=== PATIENT | female | born 1955 | race Caucasian/White ===

== ENCOUNTER 2016-11-22 07:40 | Inpatient (IN) | payer OTHER ==
[2016-11-22] VITALS (14 sets, daily range): BP systolic 81–166; BP diastolic 55–92
[~2016-11-22] VITALS: Ht 165.1 cm; Wt 57.0 kg
[~2016-11-22 07:40] MED LIST: LACTATED RINGERS 1,000 ML IV SCH; LIDOCAINE/EPINEPHRINE 1% 1:100,000 (XYLOCAINE) 30 ML VIAL INJ ONE; SODIUM CHLORIDE FLUSH 3 ML SYR IV PRN; ceFAZolin 2,000 MG in WATER (STERILE) FOR INJECTION 20 ML IV SCH
[2016-11-22] MEDS ORDERED: MIDAZOLAM 2 MG/2 ML (VERSED) VIAL ONE (08:53)
[2016-11-22] MEDS ORDERED: PROPOFOL 20 ML IV ONE (08:53)
[2016-11-22] MEDS ORDERED: ALFENTANIL 500 MCG/ML (ALFENTA) 5 ML AMP IV ONE (08:53)
[2016-11-22] MEDS ORDERED: METOCLOPRAMIDE 10 MG/2 ML (REGLAN) VIAL ONE (09:08)
[2016-11-22] MEDS ORDERED: LIDOCAINE 4% TOPICAL 4.5 ML SYR ONE (10:00)
[2016-11-22] MEDS ORDERED: SIMETHICONE 40 MG/0.6 ML (MYLICON DROPS) ORAL SYRINGE ONE (10:00)
[2016-11-22] MEDS ORDERED: ePHEDrine SULFATE 50 MG/ML 1 ML AMP ONE (10:18)
[2016-11-22] MEDS ORDERED: SUCCINYLCHOLINE 20 MG/ML 10 ML VIAL ONE (10:23)
[2016-11-22] MEDS ORDERED: ROCURONIUM 50 MG/5 ML (ZEMURON) VIAL IV ONE ×2 (10:23→13:28)
[2016-11-22 10:52] LABS: BILIRUBIN,URINE Negative (Negative); GLUCOSE, URINE (UA) Negative (Negative); LEUKOCYTE ESTERASE, URINE Negative (Negative); PH,URINE 5.5 (5.0 - 8.0); UROBILINOGEN,URINE 0.2 mg/dL (0.2-1.0)
[2016-11-22 10:55] LABS: CLARITY,URINE Slightly Cloudy; COLOR,URINE Dark Yellow
[2016-11-22 10:58] LABS: AMORPHOUS SEDIMENT,UR 1+ /HPF; URINE CENTRIFUGED VOLUME 12 mL
[2016-11-22] MEDS ORDERED: HYDROmorphone PCA 30 MG/30 ML (DILAUDID) VIAL IV PRN ×2 (13:35→15:55)
[2016-11-22] MEDS ORDERED: NALOXONE 0.4 MG/ML (NARCAN) 1 ML VIAL IV PRN (13:35)
[2016-11-22 14:29] LABS: ANION GAP 8.9 MEQ/L (3-15)
[2016-11-22] MEDS ORDERED: GLYCOPYRROLATE 0.2 MG/ML (ROBINUL) 1 ML VIAL ONE (14:43)
[2016-11-22] MEDS ORDERED: NEOSTIGMINE 1 MG/ML SYRINGE ONE (14:43)
[2016-11-22] MEDS ORDERED: HYDROmorphone 2 MG/ML (DILAUDID) 1 ML SYRINGE ONE (15:19)
[2016-11-22] MEDS ORDERED: METOCLOPRAMIDE 10 MG/2 ML (REGLAN) VIAL IV PRN (15:55)
--- NOTE | 2016-11-22 16:00 | NUR ---
61 yowf admitted from surgery per ICU bed. Pt is A & O. Has a REJ and RFA IV. ELECTRODE CLEANING MACHINE OPERATOR dilaudid attached to the RFA with LR running at a KVO. Oconnell catheter patent and draining gemma urine. Oconnell emptied, 240cc. Has NS infusing per gravity in REJ. Monitor applied showing SR. Pt has midline incision which has 4x4 and tegaderm over the top and misha, drg also to the L. Pt states she is having pain and reminded to use her ELECTRODE CLEANING MACHINE OPERATOR. Lung sounds clr, pulses palpable and strong.
--- NOTE | 2016-11-22 16:40 | NUR ---
IV fluids changed to D5 1/2 NS with 20 KCl per orders. infusing at 100cc/hr. ETO2 applied by RT. Pt is on RA sats in the 90's
[2016-11-22] MEDS: D5 1/2 NS W/KCL 20 MEQ/L 1,000 ML IV SCH (16:48)
[2016-11-22] MEDS ORDERED: NS FLUSH 10 ML PRN IV (16:50)
[2016-11-22] MEDS ORDERED: NS FLUSH 3 ML PRN IV (16:50)
[2016-11-22] MEDS: ONDANSETRON 4 MG (ZOFRAN) ORAL DISSOLVE TAB PO SCH ×2 (18:13→23:51)
--- NOTE | 2016-11-22 18:22 | NUR ---
Ice chips given to pt. Pt dozes off and on. Meds given at ordered. Will continue to monitor closely. Tele showing SR in the 80 to 90's. Oconnell catheter patent to DDD.
[2016-11-22] MEDS ORDERED: ACETAMINOPHEN 325 MG TAB (TYLENOL) PO PRN (19:30)
--- NOTE | 2016-11-22 20:30 | NUR ---
Assisted patient to right side, pillows for repositioning, RN INTERNAL MEDICINE utilized prior, does endorse discomfort to abdomen rates 5/10, c/o dry mouth, ice chips and mouth moisturizer, swabs available and offered to brush teeth, refuses at this time. Incisions with same amount of drainage, Oconnell to DD with pale yellow output, VS as charted, continue to monitor
--- NOTE | 2016-11-22 21:28 | NUR ---
Text out to per provider notification intervention for sbp less than 85 - BP 81/56 retaken 84/55 one hour later with rest 81/48. Continue to monitor
--- NOTE | 2016-11-22 21:37 | NUR ---
Dr. Laws ok with BP's will notify Dr. Bond overnight if BP consistently below 80
--- NOTE | 2016-11-22 22:30 | NUR ---
Otilia c/o being uncomfortable, assisted up to side of bed, all the further willing to go at this time. Assist with combing hair, cool wash cloth for face, oral care, cath care, repositioned in bed, stated relief. VS taken upon return to bed 96/63, temp 98.4, HR 81. Continue to monitor
[2016-11-23] VITALS (12 sets, daily range): BP systolic 77–98; BP diastolic 51–65
[2016-11-23] MEDS: KETOROLAC 30 MG/ML (TORADOL) 1 ML VIAL IV PRN ×4 (01:31→22:25)
--- NOTE | 2016-11-23 01:35 | NUR ---
Prn Toradol administered per order.
[2016-11-23] MEDS ORDERED: NS 100 ML (IVPB) BAG IV ONE (01:55)
[2016-11-23] MEDS ORDERED: SODIUM CHLORIDE 250 ML IV ONE (02:00)
--- NOTE | 2016-11-23 02:00 | NUR ---
Patient stated "it helped", is able to rest at this time
--- NOTE | 2016-11-23 02:47 | NUR ---
14 G IV R EJ w/ gravity tubing taped down, and NS to KVO. Unable to change tubing as there is no blue clave, dressing to R EJ changed under sterile technique with new bag of NS to KVO. Door Repairer Bus Kylie OCONNOR notified.
[2016-11-23] MEDS: D5 1/2 NS W/KCL 20 MEQ/L 1,000 ML IV SCH ×3 (02:51→22:45)
--- NOTE | 2016-11-23 04:50 | NUR ---
BP 0400 84/51 - End tidal at time, with moisture alarming no breath. RT called. Patient repositioned, pushed YOUTH LIAISON OFFICER several times, BP within 30 min 70's/50 - 60s on either arm. Waited 15 minutes and retaken 82/51 Continue to monitor
--- NOTE | 2016-11-23 04:59 | NUR ---
Alert and oriented with assessments, remains on room air, c/o "hurting" with inspiration, O2 sat 91-95% on room air, turning q 2 hours, respirations shallow, respirations at rest 14 - 18, kinney to dd with clear yellow output avg 34 ml/hr. Continue to monitor. Addendum: 11/23/16 at 0621 by Alia Pena RN BS auscultated in RLQ - drainage on dressings > than start of shift.
[2016-11-23] MEDS: ONDANSETRON 4 MG (ZOFRAN) ORAL DISSOLVE TAB PO SCH ×4 (05:32→23:02)
[2016-11-23 05:47] LABS: BASOPHILS % (AUTO) 0 % (0-2); EOSINOPHILS % (AUTO) 0 % (0-4); LYMPHOCYTES # (AUTO) 1.4 X10^3; MEAN CORPUSCULAR HGB CONC 33.2 g/dL (31.0-37.0); MEAN CORPUSCULAR VOLUME 94 FL (80-100); MEAN PLATELET VOLUME 10.5 FL (6.0-9.5); MONOCYTES # (AUTO) 1.1 X10^3; MONOCYTES % (AUTO) 8 % (3-11); NEUTROPHILS # (AUTO) 11.1 X10^3; NEUTROPHILS % (AUTO) 81 % (51-67); PLATELET COUNT 245 10^3uL (150-450); WHITE BLOOD COUNT 13.75 10^3uL (4.0-11.0)
[2016-11-23 05:50] LABS: MEAN CORPUSCULAR HEMOGLOBIN 31.3 PG (26.0-34.0)
[2016-11-23 05:57] LABS: ANION GAP 7.2 MEQ/L (3-15)
--- NOTE | 2016-11-23 07:20 | NUR ---
Dr Laws in room - midline and LLQ drsg removed - drsgs soaked with serous drainage
--- NOTE | 2016-11-23 07:40 | NUR ---
ET C02 35 on room air - see ICU assessment: heart sounds soft - reports abd incisional pain "10" - restless and tearful - "I did not sleep much last night due to the pain, all the cords and the alarms" - "everytime I used the Dilaudid it made me feel like I could not breathe as well" - "I haven't used any for awhile" - reports toradol "helped" - Dr Laws called c order to give scheduled tylenol - midline and LLQ drsg: folded 4X4s and tegaderm applied over incisions - midline incision X4 misha intact - "I'm so happy to have the colostomy gone" - "hurts to breathe deep" - breath smells of anesthesia gases
--- NOTE | 2016-11-23 07:59 | NUR ---
NUTRITION ASSESSMENT Level 1 Patient: Otilia Vital Age/Sex: 61/F Date Screened: 11-23-16 Weight: 127.6#/58 kg Height: 65 inches Primary Diagnosis: take-down of ostomy Diet Order: NPO Relevant labs: glucose 125 Food allergies: N Nutrition Assessment Criteria Age over 80: N Body Mass Index (BMI) under 19: N Admission Screening Indicates Risk? N Moderate/High Risk Diagnosis: 6 points TPN or PPN: N NPO or clear liquid diet: Yes Serum Glucose <70 or >180: N Hgb A1c >6.7: N/A Total: 6 points Risk Screen: __ Patient at low nutritional risk based on available data; reevaluate in 5-7 days __ Patient at moderate nutritional risk based on available data; reevaluate in 3-5 days _X_ Patient at high nutritional risk; complete Nutrition Assessment within 48 hours of admission.
[2016-11-23] MEDS: ACETAMINOPHEN 325 MG TAB (TYLENOL) PO SCH ×4 (08:00→23:02)
--- NOTE | 2016-11-23 08:05 | NUR ---
Up to chair @ bedside c SBA X1 to maintain lines - "Not as bad as I thought it was going to be getting up" - reports "I've almost quit smoking" - back rub given while sitting on bed edge
--- NOTE | 2016-11-23 08:30 | NUR ---
AM cares: brushed teeth and washed face" - reports "a little dizzy" - back to bed - "that wore me out - really tired now" - just arrived - HOB 15 degrees with pillow support for legs as requested
[2016-11-23] MEDS ORDERED: ENOXAPARIN 40 MG/0.4 ML (LOVENOX) SYR SC SCH (09:00)
[2016-11-23] MEDS ORDERED: NS FLUSH 3 ML DAILY IV SCH (09:00)
--- NOTE | 2016-11-23 09:27 | NUR ---
Asleep - 02 sat 94% on room air - @ bedside - HR 70s to 80s
--- NOTE | 2016-11-23 12:45 | NUR ---
Ultram 50 mg po for c/o pain "7" - abd incisional
--- NOTE | 2016-11-23 13:50 | NUR ---
Ambulated 60 feet steady rapid gait "did not think I would go this far" - back to room to sit in chair
--- NOTE | 2016-11-23 14:05 | NUR ---
Reports pain "7" post walking - "I'm hot" - fan on - Toradol 30 mg slow IV push as ordered and Tylenol 650 po as ordered
--- NOTE | 2016-11-23 14:20 | NUR ---
Back to bed - splints abd incision - serous drainage bottom half of incision 4X4s - "I'm worn out"
--- NOTE | 2016-11-23 15:05 | NUR ---
Family @ bedside - reports pain minimal - O2 sat 94% on room air - SR 80s
--- NOTE | 2016-11-23 15:45 | NUR ---
"I was really sleeping hard" - O2 sat 89-90% - O2 applied @ 1 L per nc - c O2
--- NOTE | 2016-11-23 16:19 | NUR ---
Sleeping - O2 sat 98% c O2 @ 1 L per nc
--- NOTE | 2016-11-23 17:17 | NUR ---
MED REC COMPLETE--current med list obtained from external med history application and list provided by patient's PCP (Jackie).
--- NOTE | 2016-11-23 17:25 | NUR ---
IS per RT - report 500 TV
--- NOTE | 2016-11-23 17:34 | NUR ---
Pt is awake and alert, visiting with family, pt is on 1L 98%, pt appears to be in good spirits.
--- NOTE | 2016-11-23 18:05 | NUR ---
Tramadol 50 mg po for c/o abdominal incision pain of "5" - daughter @ bedside
--- NOTE | 2016-11-23 22:25 | NUR ---
Prn Toradol IV per order, for c/o #6 abd pain.
--- NOTE | 2016-11-23 23:00 | NUR ---
Stated relief from Prn Toradol. Resting quietly in bed with respirations even non labored on O2 @ 1L/nc, Anish to dd w/ yellow output, IV infusing to R 18 G.
[2016-11-24] VITALS (10 sets, daily range): BP systolic 77–145; BP diastolic 50–85
[2016-11-24] MEDS ORDERED: NS IV 500 ML 500 ML ONE (00:58)
[2016-11-24] MEDS: ACETAMINOPHEN 325 MG TAB (TYLENOL) PO SCH ×4 (02:00→23:00)
--- NOTE | 2016-11-24 04:00 | NUR ---
Otilia resting in bed, becoming restless, respirations even non labored on O2 @ 1 L/nc, skin warm, c/o discomfort and having "wires and IV tubing crossed". Sat up on edge of bed, brushed hair, stood up and stepped towards head of bed, denies any c/o of dizziness or weakness, O2 removed, SPO2 95 - 96% room air, 14 G IV R EJ patent with NS KVO, dressing dry intact, 18 G IV R forearm, infusing D5 1/2 NS w/ 20 KCL @ 100 ml / hr, dressing to abdomen incision with serosanguineous to red saturated dressing lower midline, covered with Tegaderm, Midline dressing removed, cleaned with sterile water, 4 x 4 and Tegaderm, Oconnell to dd w/ yellow clear drainage, patient returns to lying position with semi freeman's position.
[2016-11-24] MEDS: ONDANSETRON 4 MG (ZOFRAN) ORAL DISSOLVE TAB PO SCH ×4 (04:54→23:01)
--- NOTE | 2016-11-24 04:55 | NUR ---
Prn Ultram 50 mg po for pain #6.
--- NOTE | 2016-11-24 05:30 | NUR ---
Prn Ultram effective patient resting quietly in bed.
[2016-11-24 06:50] LABS: ANION GAP 7.4 MEQ/L (3-15)
--- NOTE | 2016-11-24 07:05 | NUR ---
Report received from Alia OCONNOR and care assumed. Bedside report received. ENGINEERING AIDE checked and drg noted with small amount of drainage noted.
--- NOTE | 2016-11-24 08:00 | NUR ---
Dr Laws present, drg removed and misha removed by New orders received. New drg applied by Jina OCONNOR
--- NOTE | 2016-11-24 08:45 | NUR ---
Oconnell catheter removed with 150 cc of gemma urine.
[2016-11-24] MEDS ORDERED: HYDROmorphone PCA 30 MG/30 ML (DILAUDID) VIAL IV PRN (08:49)
[2016-11-24] MEDS ORDERED: NALOXONE 0.4 MG/ML (NARCAN) 1 ML VIAL IV PRN (08:50)
[2016-11-24] MEDS: D5 1/2 NS W/KCL 20 MEQ/L 1,000 ML IV SCH ×2 (08:52→18:44)
[2016-11-24] MEDS ORDERED: SODIUM CHLORIDE FLUSH 10 ML SYR IV PRN (08:52)
[2016-11-24] MEDS ORDERED: SODIUM CHLORIDE FLUSH 3 ML SYR IV PRN (08:52)
--- NOTE | 2016-11-24 09:00 | NUR ---
REJ removed by Cornelia OCONNOR pressure held for 5 minutes and then a pressure drg applied with 2 x 2 and tegaderm. Pt tolerated procedure well.
[2016-11-24] MEDS: ENOXAPARIN 40 MG/0.4 ML (LOVENOX) SYR SC SCH (09:49)
[2016-11-24] MEDS: POTASSIUM CHLORIDE ER 10 MEQ CAPSULE PO SCH (09:49)
--- NOTE | 2016-11-24 09:53 | NUR ---
Pt took sponge bath and ambulated in the samson. Telemetry removed.
--- NOTE | 2016-11-24 10:21 | NUR ---
Report given to Leydi OCONNOR and care relinquished. Pt taken to room 307 per w/c.
[2016-11-24] MEDS: METOCLOPRAMIDE 10 MG/2 ML (REGLAN) VIAL IV PRN (10:26)
--- NOTE | 2016-11-24 10:31 | NUR ---
Report received from ANASTASIA Muro. Pt admitted to [facility] at 1013 via w/c accompanied by Cornelia Moffett RN. SMALL LOT OPERATOR and IVF infusing into 18g RFA. Drsgs to midline abd intact; small amt serous drainage noted, will continue to monitor. Skin warm, dry, intact. Resprs nonlabored, even on RA. Pt is AAOx4. Pt endorses nausea upon transferring from ICU. PRN Reglan given at this time. Pt rates pain 8/10, pt pushed SMALL LOT OPERATOR button upon settling into bed. Will continue to monitor. Denies needs at this time.
--- NOTE | 2016-11-24 15:24 | NUR ---
Resting with eyes closed . Resp reg. Calm. Patient does not awaken upon entering room.Tylenol not given at this time.
[2016-11-24] MEDS: SIMvastatin 20 MG (ZOCOR) TAB PO SCH (20:35)
--- NOTE | 2016-11-24 20:35 | NUR ---
Ultram 50 mg PO given for incisional pain rated "5". Pt. utilizes COAT ROOM ATTENDANT but states pain level stays in the "4-7" range. Pt. denies nausea; resp are even and unlabored on room air; call light in lap.
--- NOTE | 2016-11-24 23:05 | NUR ---
Scheduled Tylenol and Zofran given at this time. Pt. up to bathroom; moderately steady gait with poor posture. Pt. feels urge to urinate often; small amounts at a time. Pt. denies burning/pain with urination. Resp are even and unlabored on room air; IV site/tubing secured with additional tape; IVF infusing without difficulty. Call light and ice chips within reach.
[2016-11-25] VITALS (9 sets, daily range): BP systolic 118–167; BP diastolic 69–91
[2016-11-25] MEDS: ACETAMINOPHEN 325 MG TAB (TYLENOL) PO SCH ×4 (05:04→23:36)
[2016-11-25] MEDS: ONDANSETRON 4 MG (ZOFRAN) ORAL DISSOLVE TAB PO SCH ×4 (05:04→23:36)
[2016-11-25] MEDS: KETOROLAC 30 MG/ML (TORADOL) 1 ML VIAL IV PRN ×2 (05:05→15:47)
--- NOTE | 2016-11-25 05:05 | NUR ---
Toradol IV given along with scheduled Tylenol and Zofran. Pt. states she is having no nausea but pain is rated at "4-5". Ice chips replenished; call light within reach.
--- NOTE | 2016-11-25 06:15 | NUR ---
Pt. has slept in between trips to bathroom for voids; has used 5.7 mg Dilaudid/ PATTERN MOLDER during this shift; denies nausea. SATS have remained in the 90's on room air; resp are unlabored. Pt. utilizes the splinting technique for support. Pressure dressing at right neck from removal of EJ remains secure; abd. dressing has scant drainage. Ice chips and call light within reach.
[2016-11-25] MEDS: D5 1/2 NS W/KCL 20 MEQ/L 1,000 ML IV SCH ×2 (07:17→20:14)
--- NOTE | 2016-11-25 09:10 | NUR ---
100 cc's greenish liquid emesis. Back to bed with assist. States nausea less after emesis.
[2016-11-25] MEDS: ENOXAPARIN 40 MG/0.4 ML (LOVENOX) SYR SC SCH (09:37)
[2016-11-25] MEDS: METOCLOPRAMIDE 10 MG/2 ML (REGLAN) VIAL IV PRN ×3 (09:37→20:14)
--- NOTE | 2016-11-25 09:40 | NUR ---
Emesis ~200 cc's greenish. Pt flushed - amount approximate. Reglan 10 mg given IV for nausea. Up to bathroom with standby assist. Abd dressing changed. Serosanguinous drainage noted on old 4 x 4's. Edges of incision well approximated at mid upper incision. Lower incision and left lateral incision open between faisal. All incisional edges without redness or swelling. Tolerated dressing change well.
--- NOTE | 2016-11-25 11:30 | NUR ---
ENGINEERING LIBRARIAN d'cd as ordered. New dressing applied to abd incision - 4 x 4's and tegaderm. States passed flatus x 1. Up to ambulate to shower and back. States feels much better after shower.
--- NOTE | 2016-11-25 11:30 | NUR ---
Drsg to right neck dc'd for shower.
[2016-11-25] MEDS: MULTIVITAMIN W/MINERALS (THERAGRAN M) TABLET PO SCH (11:41)
[2016-11-25] MEDS: POTASSIUM CHLORIDE ER 10 MEQ CAPSULE PO SCH (11:41)
[2016-11-25] MEDS: CYANOCOBALAMIN 1000 MCG (VITAMIN B-12) TABLET PO SCH (13:18)
--- NOTE | 2016-11-25 13:50 | NUR ---
IV inflitrated - d'cd. c/o abd pain, slight nausea.
--- NOTE | 2016-11-25 14:05 | NUR ---
Ultram 50 mg given po for c/o abd pain. IV restarted by Neha Davis - 22 gauge in left AC.
--- NOTE | 2016-11-25 14:35 | NUR ---
400 cc'c greenish Emesis. States feels better after emesis. Encouraged to be up walking in samson.
--- NOTE | 2016-11-25 15:00 | NUR ---
Pt. continues to deny nausea after last emesis. Made plan to give IV Reglan and Toradol at 1540 and then ambulate in the samson at 1600 after medications have had time to take effect. Pt. is agreeable to plan.
[2016-11-25] MEDS ORDERED: ACETAMINOPHEN 650 MG SUPP (TYLENOL) PR PRN (17:05)
--- NOTE | 2016-11-25 17:07 | NUR ---
Pt. has ambulated in the halls and received Toradol and Reglan just prior to ambulating. She continues to c/o abdominal pain rated 5-6/10 - she states the Toradol has not helped and the pain is getting worse. Concerned with pt. not tolerating PO, notified Dr. Laws of pts. pain, meds given and emesis from this afternoon. Order received to give scheduled Tylenol rectally if pt. not tolerating PO.
--- NOTE | 2016-11-25 19:01 | NUR ---
Pt. has been able to rest with eyes closed since receiving Tylenol suppository. She doesn't think Zofran helps, but is not nauseous at this time. She states pain has come down some. Report given to Anna OCONNOR to assume care of pt.
--- NOTE | 2016-11-25 19:25 | NUR ---
Pt is resting in bed, reports that she feels hot, temp is wnl, opened window and brought fan into room for pt. Alert and oriented x 4, Resp are even and nonlabored, LCTAB, HRRR, BS are active x 4 quadrants. Dressing to abdomen is clean, dry, and intact. Currently rates pain 4/10, reports that she feels better than she did earlier. IV is infusing without difficulty, no redness, swelling, or s/s of infection noted at this time. Denies needs at this time. Call light is in reach, will continue to monitor.
[2016-11-25] MEDS: SIMvastatin 20 MG (ZOCOR) TAB PO SCH (20:14)
--- NOTE | 2016-11-25 20:15 | NUR ---
Pt had emesis of 200ml, gave Reglan 10mg SIVP for nausea and vomiting. Will continue to monitor.
[2016-11-26] VITALS (8 sets, daily range): BP systolic 150–195; BP diastolic 85–110
--- NOTE | 2016-11-26 00:15 | NUR ---
This RN is notified that pt's BP was 177/109, pt had just been up to restroom and has been dry heaving. Pt is given scheduled dose of Zofran ODT, and will recheck BP after pt has time to rest.
--- NOTE | 2016-11-26 01:20 | NUR ---
Rechecked pt's BP manually, 160/88. Pt reports she is feeling better since having Zofran ODT.
--- NOTE | 2016-11-26 04:57 | NUR ---
Pt is resting in bed asleep, resp are even and nonlabored, call light is in reach, will continue to monitor.
[2016-11-26] MEDS: ACETAMINOPHEN 325 MG TAB (TYLENOL) PO SCH ×4 (05:22→23:31)
[2016-11-26] MEDS: KETOROLAC 30 MG/ML (TORADOL) 1 ML VIAL IV PRN (05:22)
[2016-11-26] MEDS: ONDANSETRON 4 MG (ZOFRAN) ORAL DISSOLVE TAB PO SCH ×4 (05:22→23:31)
--- NOTE | 2016-11-26 05:22 | NUR ---
Pt complains of abdominal pain, rates 6/10, also has emesis of 200mls at this time. Refuses Zofran ODT, reports she thinks it makes her ill. Gave scheduled Tylenol, PRN Toradol 30mg SIVP for discomfort, and Reglan 10mg SIVP for nausea and vomiting. Will continue to montior.
[2016-11-26] MEDS: METOCLOPRAMIDE 10 MG/2 ML (REGLAN) VIAL IV PRN (05:23)
[2016-11-26 05:57] LABS: ANION GAP 13.4 MEQ/L (3-15); MAGNESIUM* 2.1 mg/dL (1.6-2.3); PHOSPHORUS 3.6 mg/dL (2.4-4.9)
--- NOTE | 2016-11-26 07:45 | NUR ---
c/o epigastric burning. Denies pain at this time. Abd drsg dry and intact with gauze and tegaderm intact. States had a poor night with pain and nausea.
[2016-11-26] MEDS: MULTIVITAMIN W/MINERALS (THERAGRAN M) TABLET PO SCH (08:00)
[2016-11-26] MEDS ORDERED: PROMETHAZINE HCL INJ 12.5 MG in SODIUM CHLORIDE 25 ML IV PRN (08:05)
--- NOTE | 2016-11-26 08:40 | NUR ---
Phenergan 12.5 mg given IVPB for continued nausea. pt requesting 7-up Dr. Laws notified of epigastric burning.
[2016-11-26] MEDS: FAMOTIDINE 20 MG (PEPCID) TABLET PO SCH ×2 (08:53→20:18)
[2016-11-26] MEDS: ENOXAPARIN 40 MG/0.4 ML (LOVENOX) SYR SC SCH (08:54)
--- NOTE | 2016-11-26 08:55 | NUR ---
Pepcid 20 mg given as ordered po. Up and walked in samson to exit sign by nurses station and back. Up to bathroom with standby assist.
[2016-11-26] MEDS: POTASSIUM CHLORIDE ER 10 MEQ CAPSULE PO SCH (09:00)
[2016-11-26] MEDS: CYANOCOBALAMIN 1000 MCG (VITAMIN B-12) TABLET PO SCH (09:00)
--- NOTE | 2016-11-26 10:10 | NUR ---
Oscar. at bedside.
[2016-11-26] MEDS: D5 1/2 NS W/KCL 20 MEQ/L 1,000 ML IV SCH (11:37)
--- NOTE | 2016-11-26 12:22 | NUR ---
Up and walked in samson to nurse's station with . Tolerated ambulation better than this morning. Had small brown BM, passes flatus, and is voiding larger amounts. States has mild nausea now while up and walking. Back to room and sits in chair.
[2016-11-26] MEDS: meTOprolol TARTRATE 50 MG (LOPRESSOR) TABLET PO SCH (12:33)
--- NOTE | 2016-11-26 18:33 | NUR ---
Has walked in samson x 3 today. Feeling much better this evening. Denies pain. Has had stools x 7. First ones soft, then loose, now liquid. States is hungry. Alert and oriented. Resp. Even.n Mary Anne drsg dry and intact.
[2016-11-26] MEDS ORDERED: ZOLPIDEM 5 MG (AMBIEN) TAB PO PRN (19:35)
[2016-11-26] MEDS: DIPHENOXYLATE/ATROPINE 2.5MG/0.025MG (LOMOTIL) TAB PO SCH (20:18)
[2016-11-26] MEDS: SIMvastatin 20 MG (ZOCOR) TAB PO SCH (20:18)
[2016-11-27] MEDS: D5 1/2 NS W/KCL 20 MEQ/L 1,000 ML IV SCH ×2 (02:00→16:46)
[2016-11-27 03:58] VITALS: BP 142/77
--- NOTE | 2016-11-27 05:53 | NUR ---
Pt rests in short intervals throughout the night. Up frequently to urinate. Loose stools have subsided with lomotil administration. Pt denies pain, nausea. "Glad I got over that hump." IVF infusing w/o difficulty. Pt eats small amount of soup and crackers last evening; tolerates well. No needs at this time.
[2016-11-27] MEDS: ACETAMINOPHEN 325 MG TAB (TYLENOL) PO SCH (05:56)
[2016-11-27] MEDS: ONDANSETRON 4 MG (ZOFRAN) ORAL DISSOLVE TAB PO SCH ×2 (05:56→12:00)
--- NOTE | 2016-11-27 07:20 | NUR ---
Pt resting in bed, awake- denies pain, n/v. IVF infusing. call light within reach. Dressing to abdomen clean,dry, intact.
[2016-11-27 07:54] VITALS: BP 151/87
--- NOTE | 2016-11-27 09:10 | NUR ---
Pt back from shower. Dr. Laws at bedside. Dr. Laws explained to patient that he wants IVF to continue at 70ml/hr and PO FLuid restriction to keep hydrated, but loose stools to a minimum. Dressing changed at this time. enters room. Takes AM meds with water without difficulty. Voices hope to go home tomorrow if today goes well. call light within reach.
[2016-11-27] MEDS: MULTIVITAMIN W/MINERALS (THERAGRAN M) TABLET PO SCH (09:14)
[2016-11-27] MEDS: CYANOCOBALAMIN 1000 MCG (VITAMIN B-12) TABLET PO SCH (09:14)
[2016-11-27] MEDS: DIPHENOXYLATE/ATROPINE 2.5MG/0.025MG (LOMOTIL) TAB PO SCH ×2 (09:14→13:25)
[2016-11-27] MEDS: meTOprolol TARTRATE 50 MG (LOPRESSOR) TABLET PO SCH (09:14)
[2016-11-27] MEDS: POTASSIUM CHLORIDE ER 10 MEQ CAPSULE PO SCH (09:14)
[2016-11-27] MEDS: FAMOTIDINE 20 MG (PEPCID) TABLET PO SCH (09:14)
[2016-11-27] MEDS: ENOXAPARIN 40 MG/0.4 ML (LOVENOX) SYR SC SCH (09:15)
[2016-11-27] MEDS ORDERED: ACETAMINOPHEN 325 MG TAB (TYLENOL) PO PRN (09:20)
--- NOTE | 2016-11-27 10:13 | NUR ---
Pt ambulating halls with , smiling and talking- states she feels "so much better today!" Encouraged patient to sit up in chair instead of lying back in bed- verbalizes that she will.
[2016-11-27 11:21] VITALS: BP 123/84
--- NOTE | 2016-11-27 12:07 | NUR ---
Pt is ambulating halls again with . Has been sitting upright in chair for 30minutes prior to ambulating.
--- NOTE | 2016-11-27 14:29 | NUR ---
MULTIDISCIPLINARY MTG/DR. CAMPO: Pt. hasn't had any nausea and vomiting and no pain. Pt. has been up walking the halls. Pt. is on IV fluids for now due to the loose stools she was having. Pt. is eating bites of food. Pt. to possibly discharge home tomorrow. No discharge needs identified at this time.
[2016-11-27 15:38] VITALS: BP 141/80
--- NOTE | 2016-11-27 18:00 | NUR ---
Discharge instructions reviewed with patient and daughter. Scripts x3 given to patient to turn into [facility]. Pt verbalizes understanding. IV was dc'd by Esau OCONNOR earlier due to infiltration
--- NOTE | 2016-11-27 18:05 | NUR ---
Pt dismissed to home via w/c accompanied by daughter.
== END 2016-11-27 18:05 | disposition home or self-care (01) | DRG 330 ==
LOC: ASC 07:40 → ICU 15:51 → ASC 16:00 → MED/SURG 11-24 10:23
PROVIDERS: ADMIT Surgery; ATTEND Surgery
PROC: 0DTE0ZZ Resection of Large Intestine, Open Approach (ICD-10-PCS; principal; 2016-11-22)
PROC: 0DBB0ZZ Excision of Ileum, Open Approach (ICD-10-PCS; 2016-11-22)
DX: D12.3 Benign neoplasm of transverse colon (principal); K56.7 Ileus, unspecified; K55.8 Other vascular disorders of intestine; I10 Essential (primary) hypertension; K66.0 Peritoneal adhesions (postprocedural) (postinfection); F17.210 Nicotine dependence, cigarettes, uncomplicated
CPT/HCPCS: 36415; 74022; 80048; 81003; 81015; 83735; 84100; 84132; 85014; 85018; 85025; 86850; 86900; 86901; 94770